=== PATIENT | female | born 2000 | race Caucasian/White ===

== ENCOUNTER 2019-06-09 18:36 | Emergency (ER) | payer SELFPAY ==
[~2019-06-09] VITALS: Ht 175 cm; Wt 68.1 kg
[2019-06-09 18:57] VITALS: BP 110/75
[2019-06-09] MEDS ORDERED: TETANUS,DIPTH,PERTUSS P/F (BOOSTRIX) 0.5 ML VIAL IM ONE (19:15)
[2019-06-09] MEDS ORDERED: LIDOCAINE 1% INJ 20 ML 20 ML VIAL INJ ONE (19:15)
[2019-06-09] MEDS ORDERED: DOXY100T2 PO (19:26)
[2019-06-09] MEDS ORDERED: MUPI1OIN6 TP (19:28)
[2019-06-09] MEDS ORDERED: DOXYCYCLINE 100 MG (VIBRAMYCIN) TABLET PO STA (19:28)
--- NOTE | 2019-06-09 19:28 | ED Upper Extremity ---
General Chief Complaint: Upper Extremity Stated Complaint: LUMP UNDER RT ARM Nursing Triage Note: ABSCESS RIGHT ARM PIT X2 DAYS. Nursing Sepsis Screen: No Definite Risk History of Present Illness Date Seen by Provider: Jun 09, 2019 Time Seen by Provider: 18:50 Initial Comments 18-year-old female presents with abscess right axilla. Patient denies any drainage from the site. She denies any injuries or other skin problems. No history of MRSA. She is unsure when her last tetanus vaccine was. Onset: other (3-4 days) Pain/Injury Location: left other (axilla) Allergies and Home Medications Allergies Coded Allergies: No Known Drug Allergies (Unverified , 06/09/19) Home Medications Doxycycline Hyclate 100 Mg Tablet, 100 MG PO BID Prescribed by: PARKER POPE on 06/09/191925 Mupirocin 1 Gm Oin.pf.andrez, 1 GM TP TID Prescribed by: PARKER POPE on 06/09/191927 Patient Home Medication List Home Medication List Reviewed: Yes Review of Systems Constitutional: no symptoms reported, see HPI Skin: see HPI, other (abscess right axilla) All Other Systems Reviewed Negative Unless Noted: Yes Past Qnxtpxb-Oalduu-Gqybms Hx Past Med/Social Hx: Reviewed Nursing Past Med/Soc Hx Patient Social History Alcohol Use: Occasionally Uses Recreational Drug Use: Yes Drug of Choice: POT, METH Smoking Status: Current Everyday Smoker Recent Foreign Travel: No Contact w/Someone Who Travel: No Recent Infectious Disease Expo: No Recent Hopitalizations: No Seasonal Allergies Seasonal Allergies: No Past Medical History Surgeries: No Respiratory: No Cardiac: No Neurological: No Genitourinary: No Gastrointestinal: No Musculoskeletal: No Endocrine: No HEENT: No Cancer: No Psychosocial: No Integumentary: No Physical Exam Vital Signs Vital Signs - First Documented 06/09/19 18:41 Temp 36.7 Pulse 103 Resp 16 B/P (MAP) 110/75 (87) Pulse Ox 99 O2 Delivery Room Air Capillary Refill : Less Than 3 Seconds Height, Weight, BMI Height: '" Weight: lbs. oz. kg; 22.00 BMI Method: General Appearance: WD/WN, no apparent distress Neck: non-tender, full range of motion, supple Cardiovascular: normal peripheral pulses, regular rate, rhythm Respiratory: chest non-tender, lungs clear Shoulder: normal inspection, non-tender, no evidence of injury, normal ROM, soft tissue tenderness (Right axilla) Neurologic/Psychiatric: no motor/sensory deficits, alert, normal mood/affect, oriented x 3 Lymphatic: axilla node tender (R) Large indurated fluctuant abscess to right axilla. No active drainage. Moderate erythema and warmth. Procedures/Interventions I&D : Site: right axilla Blade Size: 11 I & D Procedure: betadine prep Progress Skin prepped with Betadine and infiltrated with 6 ML's of 1 lidocaine. Once satisfactory local anesthetic was obtained, puncture wound at the center of the abscess was made, intermediate return of purulent drainage, moderate amount. Wound was copiously irrigated with 500 ML's of sterile saline with Hibiclens, then peroxide. Bulky sterile dressing was applied. Patient tolerated procedure well. Progress/Results/Core Measures Results/Orders My Orders Orders - PARKER POPE Lidocaine 1% Inj 20 Ml (Xylocaine 1% Inj (06/09/19 19:15) Dipht,Pertuss(Acell),Tet Adult (Boostrix (06/09/19 19:15) Doxycycline Hyclate Tablet (Vibramycin T (06/09/19 19:28) Wound Culture (06/09/19 19:45) Medications Given in ED Current Medications Medications Dose Ordered Sig/Maryam Route Start Time Stop Time Status Last Admin Dose Admin Diphtheria/ Tetanus/Acell Pertussis 0.5 ml ONCE ONCE IM 06/09/19 19:15 06/09/19 19:16 DC 06/09/19 19:25 0.5 ML Lidocaine HCl 20 ml ONCE ONCE INJ 06/09/19 19:15 06/09/19 19:16 DC 06/09/19 19:23 20 ML Vital Signs/I&O 06/09/19 06/09/19 18:41 18:57 Temp 36.7 36.7 Pulse 103 103 Resp 16 16 B/P (MAP) 110/75 (87) 110/75 (87) Pulse Ox 99 99 O2 Delivery Room Air Blood Pressure Mean: 87 Departure Impression Primary Impression: Abscess of right axilla Disposition: HOME, SELF-CARE Condition: Improved Departure-Patient Inst. Decision time for Depature: 19:40 Referrals: NO,LOCAL PHYSICIAN (PCP) Primary Care Physician [facility] [place] Patient Instructions: Abscess Incision and Drainage (DC), Skin Abscess Add. Discharge Instructions: Clean wound with peroxide and apply Bactroban 3 times daily. Take antibiotics as prescribed. If wound is draining, clean laundry and bathroom with 50/50 water and bleach. Avoid sharing towel or other personal care items. Follow-up with your primary care provider in one to 2 days if symptoms are not improving or worsen. Alternate between Tylenol 650 mg and ibuprofen 600 mg every 4 hours for pain or fever. Return to the emergency department as needed for new, urgent health care problems. All discharge instructions reviewed with patient and/or family. Voiced understanding. Scripts Mupirocin (Mupirocin) 1 Gm Oin.pf.andrez 1 GM TP TID, #1 TUBE 0 Refills Prov: PARKER POPE 06/09/19 Doxycycline Hyclate (Doxycycline Hyclate) 100 Mg Tablet 100 MG PO BID, #20 TAB 0 Refills Prov: PARKER POPE 06/09/19 PARKER POPE Jun 09, 2019 19:28
== END 2019-06-09 18:59 | disposition home or self-care (01) ==
LOC: ER 18:38
DX: L02.411 Cutaneous abscess of right axilla (principal); F17.200 Nicotine dependence, unspecified, uncomplicated
CPT/HCPCS: 87070; 87077; 87186; 87205; 90471; 90715; 99282

== ENCOUNTER 2021-04-08 19:29 | Emergency (ER) | payer SELFPAY ==
[~2021-04-08 19:29] MED LIST: DOXY100T2 PO; MUPI1OIN6 TP
[2021-04-08 19:40] VITALS: BP 110/76
[2021-04-08] MEDS ORDERED: LIDOCAINE 1% INJ 20 ML 20 ML VIAL INJ ONE (20:00)
[2021-04-08] MEDS ORDERED: cefTRIAXone 1,000 MG VIAL IM ONE (20:00)
[2021-04-08] MEDS ORDERED: ACYCLOVIR 400 MG TABLET (ZOVIRAX) PO SCH (20:00)
--- NOTE | 2021-04-08 20:05 | ED GU-Female ---
General Chief Complaint: - Reproductive Stated Complaint: CHILLS/DIARRHEA/SOB/VAGINAL PAIN Nursing Triage Note: Pt arrives via POV from home with c/o dysuria, vaginal tenderness, et vaginal swelling. Pt reports sexual intercourse one week ago, states three days ago she began experiencing symptoms. Pt also reports COVID exposure, experiencing diarrhea et chills. Source: patient Exam Limitations: no limitations (ANANDA WILLS APRN) History of Present Illness Date Seen by Provider: Apr 08, 2021 Time Seen by Provider: 20:05 Initial Comments To ER with a 3 to 4-day history of chills, diarrhea, nasal congestion, low-grade fever. She has not had a cough or shortness of breath. She has had Covid vaccine x2 but not sure which brand. One of her housemates is covid +. She did have unprotected sexual intercourse about a week ago and about 3 days ago she developed vaginal pain and states that she feels like her vagina is "going to fall out". Timing/Duration: just prior to arrival Severity/Quality: cramping Location: suprapubic Radiation: none Activities at Onset: none Prior Genitourinary Problems: none (ANANDA WILLS APRN) Allergies and Home Medications Allergies Coded Allergies: No Known Drug Allergies (Unverified , 06/09/19) Patient Home Medication List Home Medication List Reviewed: Yes (ANANDA WILLS APRN) Acyclovir (Acyclovir) 400 Mg Tablet, 400 MG PO TID Prescribed by: ANANDA WILLS on 04/08/212014 Doxycycline Hyclate (Doxycycline Hyclate) 100 Mg Tablet, 100 MG PO BID Prescribed by: PARKER POPE on 06/09/191925 Metronidazole (Metronidazole) 500 Mg Tablet, 500 MG PO BID Prescribed by: ANANDA WILLS on 04/08/212027 Mupirocin (Mupirocin) 1 Gm Oin.pf.andrez, 1 GM TP TID Prescribed by: PARKER POPE on 06/09/191927 Review of Systems Review of Systems Constitutional: see HPI, chills EENTM: see HPI, nose congestion Respiratory: no symptoms reported Cardiovascular: no symptoms reported Genitourinary: see HPI Musculoskeletal: no symptoms reported Skin: no symptoms reported Psychiatric/Neurological: No Symptoms Reported Endocrine: No Symptoms Reported Hematologic/Lymphatic: No Symptoms Reported (ANANDA WILLS APRN) Past Lxvcfuk-Whupks-Mdhret Hx Patient Social History Tobacco Use?: Yes Tobacco type used: Cigarettes Smoking Status: Current Everyday Smoker Substance use?: Yes Substance type: Marijuana Alcohol Use?: No Pt feels they are or have been: No (ANANDA WILLS APRN) Immunizations Up To Date Influenza Vaccine Up-to-Date: No; Not Current (ANANDA WILLS APRN) Seasonal Allergies Seasonal Allergies: No (ANANDA WILLS APRN) Past Medical History Surgeries: No Respiratory: No Cardiac: No Neurological: No Genitourinary: No Gastrointestinal: No Musculoskeletal: No Endocrine: No HEENT: No Cancer: No Psychosocial: No Integumentary: No (ANANDA WILLS APRN) Physical Exam Vital Signs Vital Signs - First Documented 04/08/21 19:40 Temp 39.4 Pulse 99 Resp 18 B/P (MAP) 110/76 (87) Pulse Ox 100 O2 Delivery Room Air (NICK,ANN K DO) Vital Signs Capillary Refill : Less Than 3 Seconds (ANANDA WILLS APRN) Height, Weight, BMI Height: '" Weight: lbs. oz. kg; 22.00 BMI Method: General Appearance: WD/WN, no apparent distress HEENT: PERRL/EOMI, normal ENT inspection Neck: non-tender, full range of motion Respiratory: no respiratory distress, no accessory muscle use Gastrointestinal: normal bowel sounds, non tender, soft Genital/Rectal: other (Was not able to do a cervical exam with speculum due to her pain. Pelvic exam was done with Julisa MOODY at the bedside. There is erythema and edema of the labia with several shallow exquisitely tender ulcers on the mucous membrane. 1 of these was cultured for herpes simplex and vaginal culture and Chlamydia/gonorrhea swabs were obtained from the vaginal introitus.) Extremities: normal range of motion, non-tender Neurologic/Psychiatric: alert, normal mood/affect, oriented x 3 Skin: normal color, warm/dry (ANANDA WILLS APRN) Progress/Results/Core Measures Suspected Sepsis SIRS Temperature: Pulse: 99 Respiratory Rate: 18 Blood Pressure 110 /76 Mean: 87 (ANANDA WILLS APRN) Results/Orders Lab Results Laboratory Tests Test 04/08/21 19:50 04/08/21 19:57 04/08/21 20:14 Range/Units Influenza Type A (RT-PCR) Not Detected Not Detecte Influenza Type B (RT-PCR) Not Detected Not Detecte SARS-CoV-2 RNA (RT-PCR) Not Detected Not Detecte Urine Color YELLOW Urine Clarity SL CLOUDY Urine pH 6.5 5-9 Urine Specific [place] 1.025 H 1.016-1.022 Urine Protein 1+ H NEGATIVE Urine Glucose (UA) NEGATIVE NEGATIVE Urine Ketones TRACE H NEGATIVE Urine Nitrite NEGATIVE NEGATIVE Urine Bilirubin 1+ H NEGATIVE Urine Urobilinogen 1.0 < = 1.0 MG/DL Urine Leukocyte Esterase TRACE H NEGATIVE Urine RBC (Auto) NEGATIVE NEGATIVE Urine RBC NONE /HPF Urine WBC 5-10 H /HPF Urine Squamous Epithelial Cells 0-2 /HPF Urine Crystals NONE /LPF Urine Bacteria FEW H /HPF Urine Casts NONE /LPF Urine Mucus LARGE H /LPF Urine Culture Indicated YES (ANN ROMERO DO) My Orders Orders - ANN ROMERO DO Ua Culture If Indicated (04/08/21 19:54) Influenza A And B By Pcr (04/08/21 19:54) Covid 19 Inhouse Test (04/08/21 19:54) Urine Bedside (04/08/21 19:54) Urine Culture (04/08/21 20:14) (ANN ROMERO DO) Medications Given in ED Current Medications Medications Dose Ordered Sig/Maryam Route Start Time Stop Time Status Last Admin Dose Admin Ceftriaxone Sodium 1,000 mg ONCE ONCE IM 04/08/21 20:00 04/08/21 20:05 DC 04/08/21 20:15 1,000 MG Lidocaine HCl 2.1 ml ONCE ONCE INJ 04/08/21 20:00 04/08/21 20:05 DC 04/08/21 20:15 2.1 ML Lidocaine HCl 15 ml ONCE ONCE PO 04/08/21 20:00 04/08/21 20:05 DC 04/08/21 20:33 15 ML (ANN ROMERO DO) Vital Signs/I&O 04/08/21 19:40 Temp 39.4 Pulse 99 Resp 18 B/P (MAP) 110/76 (87) Pulse Ox 100 O2 Delivery Room Air (ANN ROMERO DO) Vital Signs/I&O Capillary Refill : Less Than 3 Seconds (ANANDA WILLS APRN) Blood Pressure Mean: 87 Departure Impression Primary Impression: Genital labial ulcer Additional Impression: Viral syndrome Disposition: 01 HOME, SELF-CARE Condition: Stable Departure-Patient Inst. Decision time for Depature: 20:13 (ANANDA WILLS APRN) [place] [facility] [place] [place] (PCP/Family) Primary Care Physician Patient Instructions: COVID-19 Vaccines Add. Discharge Instructions: 1. It is very possible that these labial ulcers are related to a herpes simplex infection which is a lifelong infection that will wax and wane throughout your life. This will be best treated by a antivirals if it is positive. In the vt antime take the medications as directed. Culture results should be back within a week. It is important to follow-up with your primary care provider next week for further evaluation and treatment. Abstain from any sexual intercourse until lesions resolve and culture results are known. All discharge instructions reviewed with patient and/or family. Voiced understanding. Scripts Metronidazole (Metronidazole) 500 Mg Tablet 500 MG PO BID, #14 TAB 0 Refills Prov: ANANDA WILLS APRN 04/08/21 Acyclovir (Acyclovir) 400 Mg Tablet 400 MG PO TID, #21 TAB Prov: ANANDA WILLS APRN 04/08/21 ATTENDING PHYSICIAN NOTE: I WAS PHYSICALLY PRESENT ER PHYSICIAN WHEN THIS PATIENT WAS IN ER, BUT I WAS NOT INVOLVED IN ANY DECISION MAKING OR ANY CARE OF THIS PATIENT. (ANN ROMERO DO) ANANDA WILLS APRN Apr 08, 2021 20:05 ANN ROMERO DO Apr 09, 2021 05:12
[2021-04-08] MEDS: LIDOCAINE 2% VISCOUS 15 ML UDC PO ONE ×2 (20:14→20:33)
[2021-04-08] MEDS ORDERED: ACYC400T21 PO (20:15)
[2021-04-08 20:20] LABS: CLARITY,URINE SL CLOUDY; COLOR,URINE YELLOW; GLUCOSE, URINE (UA) NEGATIVE (NEGATIVE); KETONES,URINE TRACE (NEGATIVE); LEUKOCYTE ESTERASE ,URINE TRACE (NEGATIVE); NITRITE,URINE NEGATIVE (NEGATIVE); PH,URINE 6.5 (5-9); PROTEIN,URINE 1+ (NEGATIVE)
[2021-04-08 20:28] LABS: BACTERIA,URINE FEW /HPF; BILIRUBIN,URINE 1+ (NEGATIVE); SQUAMOUS EPITHELIAL CELL,UR 0-2 /HPF
[2021-04-08] MEDS ORDERED: METR-145 PO (20:28)
[2021-04-08] MEDS ORDERED: AZITHROMYCIN 250 MG TAB (ZITHROMAX) PO SCH (20:30)
[2021-04-09] MEDS ORDERED: AZITHROMYCIN 250 MG TAB (ZITHROMAX) PO SCH (09:00)
== END 2021-04-08 20:45 | disposition home or self-care (01) ==
LOC: EDUNIT# 19:29 → ER 19:30
DX: N76.6 Ulceration of vulva (principal); B34.9 Viral infection, unspecified; F17.210 Nicotine dependence, cigarettes, uncomplicated; Z20.822 Contact with and (suspected) exposure to COVID-19
CPT/HCPCS: 36415; 81000; 84703; 87070; 87088; 87205; 87210; 87254; 87491; 87591; 87636; 99284

== ENCOUNTER 2021-09-23 21:37 | Emergency (ER) | payer SELFPAY ==
[~2021-09-23] VITALS: Ht 172 cm; Wt 68.0 kg
[~2021-09-23 21:37] MED LIST changes: +ACYC400T21 PO; +METR-145 PO
[2021-09-23 21:50] VITALS: BP 107/73
--- NOTE | 2021-09-23 22:23 | ED GU-Female ---
General Chief Complaint: General Problems/Pain Stated Complaint: VAGINAL PAIN Nursing Triage Note: PT PRESENTS WITH C/O VAGINAL LESION AND BURNING OF THE VAGINA WHEN URINATING. REPORTS HX OF HERPES, DENIES BEING ON ANTIVIRAL MEDICATION. REPORTS SHE BELIEVES THIS IS ANOTHER HERPES OUTBREAK. Source: patient Exam Limitations: no limitations History of Present Illness Date Seen by Provider: September 23, 2021 Time Seen by Provider: 22:15 Initial Comments Patient to the ER by private conveyance chief complaint for the past day she had some increased burning pain in her vagina with a little bit of discharge malodorous. She has a history of herpes not on any antiviral medication at this time. She also shaved 2 days ago. She has not looked at it so she is not sure what it looks like. No fevers chills nausea vomiting dysuria. She is 2 to 3 weeks out from her last period. She is not on control. She is on the women chcf at this time and does not want a test nor does she want further STD screening. She did have STD testing just within the past 2 to 3 mon ths Allergies and Home Medications Allergies Coded Allergies: No Known Drug Allergies (Unverified , 06/09/19) Patient Home Medication List Home Medication List Reviewed: Yes Acyclovir (Acyclovir) 400 Mg Tablet, 400 MG PO TID Prescribed by: ANANDA WILLS on 04/08/212014 Acyclovir (Acyclovir) 800 Mg Tablet, 800 MG PO 5XD Prescribed by: SALAZAR ARCINIEGA on 09/23/212234 Doxycycline Hyclate (Doxycycline Hyclate) 100 Mg Tablet, 100 MG PO BID Prescribed by: PARKER POPE on 06/09/191925 Metronidazole (Metronidazole) 500 Mg Tablet, 500 MG PO BID Prescribed by: ANANDA WILLS on 04/08/212027 Mupirocin (Mupirocin) 1 Gm Oin.pf.andrez, 1 GM TP TID Prescribed by: PARKER POPE on 06/09/191927 Review of Systems Review of Systems Constitutional: No chills, No diaphoresis EENTM: No ear discharge, No ear pain Respiratory: No cough, No short of breath Cardiovascular: No edema, No palpitations All Other Systemes Reviewed Negative Unless Noted: Yes Past Fyjzdqx-Rdnyao-Siigjr Hx Patient Social History Tobacco Use?: Yes Tobacco type used: Cigarettes Smoking Status: Current Everyday Smoker Substance use?: No Alcohol Use?: No Immunizations Up To Date Influenza Vaccine Up-to-Date: No; Not Current First/Initial COVID19 Vaccinat: UNKNOWN DATE Second COVID19 Vaccination Henri: UNKNOWN DATE COVID19 Vaccine Dado Operator: UNKNOWN Seasonal Allergies Seasonal Allergies: No Past Medical History Surgeries: No Respiratory: No Cardiac: No Neurological: No Genitourinary: No Gastrointestinal: No Musculoskeletal: No Endocrine: No HEENT: No Cancer: No Psychosocial: No Integumentary: No Physical Exam Vital Signs Vital Signs - First Documented 09/23/21 21:50 Pulse 79 Resp 18 B/P (MAP) 107/73 (84) Pulse Ox 98 O2 Delivery Room Air Capillary Refill : Height, Weight, BMI Height: '" Weight: lbs. oz. kg; 22.00 BMI Method: General Appearance: WD/WN, no apparent distress HEENT: PERRL/EOMI, pharynx normal Neck: full range of motion, normal inspection Cardiovascular: normal peripheral pulses, regular rate, rhythm Respiratory: no respiratory distress, no accessory muscle use Pelvic: No discharge; lesions (Small little clusters of ulcerations and a small vesicle at the posterior fourchette that are tender to palpation and nondraining.) Progress/Results/Core Measures Suspected Sepsis SIRS Temperature: Pulse: 79 Respiratory Rate: 18 Blood Pressure 107 /73 Mean: 84 Results/Orders My Orders Orders - SALAZAR ARCINIEGA Wet Prep (09/23/21 22:23) Vital Signs/I&O 09/23/21 21:50 Pulse 79 Resp 18 B/P (MAP) 107/73 (84) Pulse Ox 98 O2 Delivery Room Air Capillary Refill : Blood Pressure Mean: 84 Progress Note : Time: 22:33 Progress Note She has a history of herpes so we will put her on acyclovir. We did do a wet pr ep and we will treat her appropriately for that. The ulcers do not look like Haemophilus ducreyi and she says they are similar to the last time she had herpes. She does not appear to have folliculitis Departure Impression Primary Impression: Herpes genitalis in women Additional Impression: Bacterial vaginosis Disposition: 01 HOME, SELF-CARE Condition: Stable Departure-Patient Inst. Decision time for Depature: 22:45 Referrals: [facility] (PCP/Family) Primary Care Physician Patient Instructions: Genital Herpes (DC), Bacterial Vaginosis ED Add. Discharge Instructions: Acyclovir 800 mg 5 times a day. Take to completion. If you have another outbreak then you can get another round through the pharmacy. If you have further outbreaks and follow-up with your primary care provider for refills. Metronidazole 500 mg twice a day with food for the next week to take care of the bacterial overgrowth. All discharge instructions reviewed with patient and/or family. Voiced understanding. Scripts Metronidazole (Metronidazole) 500 Mg Tablet 500 MG PO BID for 7 Days, #14 TAB 0 Refills Prov: SALAZAR ARCINIEGA 09/23/21 Acyclovir (Acyclovir) 800 Mg Tablet 800 MG PO 5XD for 7 Days, #35 TAB 1 Refill Prov: SALAZAR ARCINIEGA 09/23/21 SALAZAR ARCINIEGA September 23, 2021 22:23
[2021-09-23] MEDS ORDERED: ACYC-112 PO (22:35)
[2021-09-23] MEDS ORDERED: METR-145 PO (22:46)
[2021-09-23] MEDS ORDERED: ACYCLOVIR 400 MG TABLET (ZOVIRAX) PO STA (22:48)
== END 2021-09-23 23:12 | disposition home or self-care (01) ==
LOC: EDUNIT# 21:37 → ER 21:39
DX: A60.04 Herpesviral vulvovaginitis (principal); F17.210 Nicotine dependence, cigarettes, uncomplicated
CPT/HCPCS: 87210; 99282

== ENCOUNTER 2022-06-20 12:32 | Emergency (ER) | payer SELFPAY ==
[~2022-06-20] VITALS: Ht 175 cm; Wt 58.0 kg
[~2022-06-20 12:32] MED LIST changes: +ACYC-112 PO
--- NOTE | 2022-06-20 13:07 | ED Integumentary General ---
General Chief Complaint: Skin/Wound Problems Stated Complaint: INFECTION IN GROIN AREA Nursing Triage Note: ABSCESS TO GROIN X2 DAYS. Source: patient Exam Limitations: no limitations History of Present Illness Date Seen by Provider: Jun 20, 2022 Time Seen by Provider: 12:54 Initial Comments 21-year-old female presents with complaints of "bumps" to groin area. States there are 2, 1 is located in the left inguinal area, the second is located in the left labial area. States she noticed the one in the left inguinal area today, noticed the other one a couple days ago. She has a history of genital herpes, she is unsure if this is an outbreak. She is not currently on any antivirals. Complains of nausea due to the pain with wiping. Denies fevers, abdominal pain, diarrhea, dysuria. Past medical history only includes genital herpes, does not take any medications. Allergies and Home Medications Allergies Coded Allergies: No Known Drug Allergies (Unverified , 06/09/19) Patient Home Medication List Home Medication List Reviewed: Yes Sulfamethoxazole/Trimethoprim (Bactrim Ds Tablet) 1 Each Tablet, 1 EACH PO BID Prescribed by: Rosie Olea on 06/20/22 1308 Discontinued Medications Acyclovir (Acyclovir) 400 Mg Tablet, 400 MG PO TID Discontinued Reason: No Longer Taking Prescribed by: ANANDA WILLS on 04/08/212014 Last Action: Discontinued Acyclovir (Acyclovir) 800 Mg Tablet, 800 MG PO 5XD Discontinued Reason: No Longer Taking Prescribed by: SALAZAR ARCINIEGA on 09/23/212234 Last Action: Discontinued Doxycycline Hyclate (Doxycycline Hyclate) 100 Mg Tablet, 100 MG PO BID Discontinued Reason: No Longer Taking Prescribed by: PARKER POPE on 06/09/191925 Last Action: Discontinued Metronidazole (Metronidazole) 500 Mg Tablet, 500 MG PO BID Discontinued Reason: No Longer Taking Prescribed by: ANANDA WILLS on 04/08/212027 Last Action: Discontinued Metronidazole (Metronidazole) 500 Mg Tablet, 500 MG PO BID Discontinued Reason: No Longer Taking Prescribed by: SALAZAR ARCINIEGA on 09/23/21 224 Last Action: Discontinued Mupirocin (Mupirocin) 1 Gm Oin.pf.andrez, 1 GM TP TID Discontinued Reason: No Longer Taking Prescribed by: PARKER POPE on 06/09/191927 Last Action: Discontinued Review of Systems Review of Systems Constitutional: see HPI Past Iswfsld-Wklgor-Whfrtv Hx Patient Social History Tobacco type used: Cigarettes Smoking Status: Current Everyday Smoker Substance use?: Yes Substance type: Marijuana Alcohol Use?: No Immunizations Up To Date First/Initial COVID19 Vaccinat: UNKNOWN DATE Second COVID19 Vaccination Henri: UNKNOWN COVID19 Vaccine Gas Line Servicer: UNKNOWN Seasonal Allergies Seasonal Allergies: No Past Medical History Surgeries: No Respiratory: No Cardiac: No Neurological: No Last Menstrual Period: Jun 06, 2022 Genitourinary: No Gastrointestinal: No Musculoskeletal: No Endocrine: No HEENT: No Cancer: No Psychosocial: No Integumentary: No Physical Exam Vital Signs Vital Signs - First Documented 06/20/22 12:40 Temp 35.7 Pulse 115 Resp 16 B/P (MAP) 115/74 (88) Pulse Ox 100 O2 Delivery Room Air Capillary Refill : Less Than 3 Seconds General Appearance: WD/WN, no apparent distress Neck: supple, normal inspection Cardiovascular: regular rate, rhythm, no edema, no gallop, no JVD, no murmur Respiratory: lungs clear, normal breath sounds, no respiratory distress, no accessory muscle use Extremities: normal range of motion, normal inspection Neurologic/Psychiatric: alert, normal mood/affect Skin: normal color, warm/dry Skin Problem Location: other (Perineal area) Skin Problem Character: abscess (Induration to left perineal area, mild redness, no drainage, no area of fluctuation) Lymphatic: inguinal node tender (L) (Enlarged left inguinal node) Progress/Results/Core Measures Results/Orders Vital Signs/I&O 06/20/22 12:40 Temp 35.7 Pulse 115 Resp 16 B/P (MAP) 115/74 (88) Pulse Ox 100 O2 Delivery Room Air Blood Pressure Mean: 88 Progress Progress Note : Time: 13:05 Progress Note Patient seen and evaluated, resting on bed, no acute distress. Left perineal abscess noted, no area of fluctuation, unable to drain at this time. Left inguinal lymphadenopathy. Will discharge with antibiotic. Patient instructed to do warm compresses and to return to ED in 2 days for reevaluation and possible I&D at that time since patient does not have a primary care provider. Discharge directions and return precautions provided. Departure Impression Primary Impression: Abscess Disposition: 01 HOME, SELF-CARE Condition: Stable Departure-Patient Inst. Decision time for Depature: 13:06 Referrals: [facility] (PCP/Family) Primary Care Physician Patient Instructions: Skin Abscess Add. Discharge Instructions: Return in 2 days to have wound reevaluated. Use warm compresses on the area for 20 minutes at a time several times a day. Take the antibiotic as prescribed, complete full course of antibiotic, even if symptoms improve. Return for fever, or any other new, concerning, or worsening symptoms. All discharge instructions reviewed with patient and/or family. Voiced understanding. Scripts Sulfamethoxazole/Trimethoprim (Bactrim Ds Tablet) 1 Each Tablet 1 EACH PO BID for 7 Days, #14 TAB 0 Refills Prov: ROSIE OLEA APRN 06/20/22 Work/School Note: Work Release Form Date Seen in the Emergency Department: Jun 20, 2022 Return to Work: Jun 21, 2022 Restrictions: No Restrictions ROSIE OLEA APRN Jun 20, 2022 13:07
[2022-06-20] MEDS ORDERED: SULF1TAB38 PO (13:08)
[2022-06-20 13:15] VITALS: BP 115/74
[2022-06-21] MEDS ORDERED: ACHD5005 PO (16:47)
== END 2022-06-20 13:16 | disposition home or self-care (01) ==
LOC: EDUNIT# 12:32 → ER 12:35
DX: L02.215 Cutaneous abscess of perineum (principal); R59.0 Localized enlarged lymph nodes; F17.210 Nicotine dependence, cigarettes, uncomplicated
CPT/HCPCS: 99281

== ENCOUNTER 2022-06-21 16:04 | Emergency (ER) | payer SELFPAY ==
[~2022-06-21] VITALS: Ht 175 cm; Wt 59.0 kg
[~2022-06-21 16:04] MED LIST changes: +SULF1TAB38 PO
[2022-06-21 16:15] VITALS: BP 116/80
--- NOTE | 2022-06-21 16:18 | ED Integumentary General ---
General Chief Complaint: Skin/Wound Problems Stated Complaint: INFECTION IN GROIN AREA Source: patient Exam Limitations: no limitations History of Present Illness Date Seen by Provider: Jun 21, 2022 Time Seen by Provider: 16:16 Initial Comments Patient is a 21-year-old female who presents ED with pain to her left sided groin. She states she was seen here yesterday with a potential abscess placed on Bactrim. Was recommended come to the ED if symptoms worsen. She noticed increased swelling and pain to this area. She has taken a day worth of Bactrim. She states she has felt feverish. She denies of any diarrhea, vomiting, abdominal pain. She reports some redness around her labia. Allergies and Home Medications Allergies Coded Allergies: No Known Drug Allergies (Unverified , 06/09/19) Patient Home Medication List Home Medication List Reviewed: Yes Hydrocodone/Acetaminophen (Hydrocodone-Acetamin 5-325 mg) 5 Mg-325 Mg Tablet, 1 TAB PO Q4H PRN for PAIN-MODERATE (5-7) Prescribed by: FLAVIO WILSON on 06/21/22 1647 Sulfamethoxazole/Trimethoprim (Bactrim Ds Tablet) 1 Each Tablet, 1 EACH PO BID Prescribed by: Rosie Charles on 06/20/22 1308 Discontinued Medications Acyclovir (Acyclovir) 400 Mg Tablet, 400 MG PO TID Discontinued Reason: No Longer Taking Prescribed by: ANANDA WILLS on 04/08/212014 Acyclovir (Acyclovir) 800 Mg Tablet, 800 MG PO 5XD Discontinued Reason: No Longer Taking Prescribed by: SALAZAR ARCINIEGA on 09/23/212234 Doxycycline Hyclate (Doxycycline Hyclate) 100 Mg Tablet, 100 MG PO BID Discontinued Reason: No Longer Taking Prescribed by: PARKER POPE on 06/09/191925 Metronidazole (Metronidazole) 500 Mg Tablet, 500 MG PO BID Discontinued Reason: No Longer Taking Prescribed by: ANANDA WILLS on 04/08/212027 Metronidazole (Metronidazole) 500 Mg Tablet, 500 MG PO BID Discontinued Reason: No Longer Taking Prescribed by: SALAZAR ARCINIEGA on 09/23/212245 Mupirocin (Mupirocin) 1 Gm Oin.pf.andrez, 1 GM TP TID Discontinued Reason: No Longer Taking Prescribed by: PARKER POPE on 06/09/191927 Review of Systems Review of Systems Constitutional: No chills, No diaphoresis, No malaise, No weakness EENTM: No hearing loss, No ear pain, No blurred vision, No vision loss, No mouth pain, No mouth swelling, No throat pain, No throat swelling Respiratory: No cough Cardiovascular: No chest pain Gastrointestinal: No abdominal pain, No diarrhea, No nausea, No vomiting Genitourinary: No decreased output, No discharge Musculoskeletal: No back pain, No joint pain; other (Abscess) Skin: change in color All Other Systems Reviewed Negative Unless Noted: Yes Past Dtgdhad-Trqnfy-Tmsrxp Hx Immunizations Up To Date First/Initial COVID19 Vaccinat: UNKNOWN DATE Second COVID19 Vaccination Henri: UNKNOWN Seasonal Allergies Seasonal Allergies: No Past Medical History Surgeries: No Respiratory: No Cardiac: No Neurological: No Genitourinary: No Gastrointestinal: No Musculoskeletal: No Endocrine: No HEENT: No Cancer: No Psychosocial: No Integumentary: No Physical Exam Vital Signs Vital Signs - First Documented 06/21/22 16:15 Temp 36.7 Pulse 108 Resp 20 B/P (MAP) 116/80 (92) Pulse Ox 99 O2 Delivery Room Air Capillary Refill : General Appearance: WD/WN, no apparent distress HEENT: PERRL/EOMI, normal ENT inspection, TMs normal, pharynx normal Neck: non-tender, full range of motion, supple, normal inspection Cardiovascular: regular rate, rhythm, no edema, no gallop, no JVD Respiratory: chest non-tender, lungs clear, normal breath sounds, no respiratory distress, no accessory muscle use Gastrointestinal: normal bowel sounds, non tender, soft, no organomegaly Back: normal inspection, no CVA tenderness Extremities: normal range of motion, non-tender, normal inspection, no pedal edema 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 Tenderness to palpate.) Lymphatic: no adenopathy Procedures/Interventions I&D : Blade Size: 11 I & D Procedure: betadine prep Packing/Drain: Idoform 1/ Progress Large left Bartholin cyst with large amount of purulent drainage. Lidocaine 1% 10 mils was used with 20-gauge needle. Prepped with Betadine. Iodoform packing was placed. Extensive irrigation with 200 mls. Patient tolerated procedure well Progress/Results/Core Measures Results/Orders My Orders Orders - CATHERINE VELIZ Lidocaine 1% Inj 10 Ml (Xylocaine 1% Inj (06/21/22 16:30) Medications Given in ED Current Medications Medications Dose Ordered Sig/Maryam Route Start Time Stop Time Status Last Admin Dose Admin Lidocaine HCl 10 ml ONCE ONCE INJ 06/21/22 16:30 06/21/22 16:31 DC 06/21/22 16:45 10 ML Vital Signs/I&O 06/21/22 16:15 Temp 36.7 Pulse 108 Resp 20 B/P (MAP) 116/80 (92) Pulse Ox 99 O2 Delivery Room Air Departure Communication (PCP) Patient has a large left Bartholin cyst. Incision and drainage with large amount of purulent drainage. Do not have Delgado catheter or [place] to suture. Was able to place iodoform gauze. Discussed with patient that this will continue to drain. She was placed on Bactrim which I recommend continuing. Pain improved. Will discharge with pain medication. Follow-up your primary care physician 2 days for reevaluation. If not able to follow-up recommend return back to ED for recheck and packing removal. Return precaution were discussed with patient. Avoid any sexual intercourse at this time. No urinary symptoms. Impression Primary Impression: Bartholin cyst Disposition: 01 HOME, SELF-CARE Condition: Stable Departure-Patient Inst. Decision time for Depature: 16:46 Ref[facility]: [facility] [place] (PCP/Family) Primary Care Physician Patient Instructions: Wound Care (DC), Bartholin Gland Cyst Add. Discharge Instructions: Take pain medication as prescribed. Remove packing in 2 days. Soap and water is okay pat dry. Continue with antibiotics All discharge instructions reviewed with patient and/or family. Voiced understanding. Scripts Hydrocodone/Acetaminophen (Hydrocodone-Acetamin 5-325 mg) 5 Mg-325 Mg Tablet 1 TAB PO Q4H PRN for PAIN-MODERATE (5-7), #8 TAB Prov: CATHERINE VELIZ 06/21/22 CATHERINE VELIZ Jun 21, 2022 16:18
[2022-06-21] MEDS ORDERED: LIDOCAINE 1% INJ 10 ML VIAL INJ ONE (16:30)
[2022-06-21] MEDS ORDERED: ACHD5005 PO (16:47)
== END 2022-06-21 16:50 | disposition home or self-care (01) ==
LOC: EDUNIT# 16:04 → ER 16:06
DX: N75.0 Cyst of Bartholin's gland (principal)
CPT/HCPCS: 99282

== ENCOUNTER 2022-12-26 11:15 | Emergency (ER) | payer MEDICAID ==
[~2022-12-26] VITALS: Ht 172.7 cm; Wt 67.5 kg
[~2022-12-26 11:15] MED LIST changes: +ACHD5005 PO
--- NOTE | 2022-12-26 11:28 | ED Integumentary General ---
General Chief Complaint: Skin/Wound Problems Stated Complaint: CYST REMOVAL Source: patient Exam Limitations: no limitations (CATHERINE VELIZ) History of Present Illness Date Seen by Provider: Dec 26, 2022 Time Seen by Provider: 11:28 Initial Comments Patient is a 22-year-old female who presents to the ED with a left groin abscess. Started 2 days ago. Increased size pain. She has a history of similar cyst in the past that required incision and drainage. She followed up with Dr. Stallings her [employer] today for a 20-week visit. Was recommended come the ED for incision and drainage. She reports no pain with urination or frequent urination. No current vaginal bleeding, abdominal pain, fever, vomiting, diarrhea. Not currently on antibiotics. Patient denies fever, chills, body aches, headache, dizziness (CATHERINE VELIZ) Allergies and Home Medications Allergies Coded Allergies: No Known Drug Allergies (Unverified , 06/09/19) Patient Home Medication List Home Medication List Reviewed: Yes (CATHERINE VELIZ) Cephalexin (Cephalexin) 500 Mg Tablet, 500 MG PO QID Prescribed by: FLAVIO WILSON on 12/26/22 1153 Clindamycin HCl (Clindamycin HCl) 300 Mg Capsule, 300 MG PO QID Prescribed by: FLAVIO WILSON on 12/26/22 1200 Hydrocodone/Acetaminophen (Hydrocodone-Acetamin 5-325 mg) 5 Mg-325 Mg Tablet, 1 TAB PO Q4H PRN for PAIN-MODERATE (5-7) Prescribed by: FLAVIO WILSON on 06/21/22 1647 Sulfamethoxazole/Trimethoprim (Bactrim Ds Tablet) 1 Each Tablet, 1 EACH PO BID Prescribed by: Rosie Charles on 06/20/22 1308 Review of Systems Review of Systems Constitutional: No chills EENTM: No ear pain, No double vision Respiratory: No cough, No dyspnea on exertion Cardiovascular: No chest pain Gastrointestinal: No abdominal pain, No diarrhea, No nausea, No vomiting Genitourinary: No decreased output, No discharge, No dysuria, No frequency Musculoskeletal: No back pain, No joint pain Skin: change in color, other (Abscess) (CATHERINE VELIZ) All Other Systems Reviewed Negative Unless Noted: Yes (CATHERINE VELIZ) Past Pyaqxlg-Bjgtow-Tlkfvu Hx Patient Social History Tobacco Use?: Yes Tobacco type used: Cigarettes Use of E-Cig and/or Vaping dev: Yes E-Cig or Vaping type used: Nicotine Substance use?: Yes Substance type: Marijuana Alcohol Use?: No Pt feels they are or have been: Unable to obtain (CATHERINE VELIZ) Immunizations Up To Date First/Initial COVID19 Vaccinat: UNKNOWN Second COVID19 Vaccination Henri: UNKNOWN Third COVID19 Vaccination Date: UNKNOWN (CATHERINE VELIZ) Seasonal Allergies Seasonal Allergies: No (CATHERINE VELIZ) Past Medical History Surgeries: No Respiratory: No Cardiac: No Neurological: No Genitourinary: No Gastrointestinal: No Musculoskeletal: No Endocrine: No HEENT: No Cancer: No Psychosocial: No Integumentary: No (CATHERINE VELIZ) Physical Exam Vital Signs Vital Signs - First Documented 12/26/22 11:24 Temp 36.3 Pulse 103 B/P (MAP) 121/75 (90) Pulse Ox 100 O2 Delivery Room Air (BLAKE FUENTES MD) Vital Signs Capillary Refill : (CATHERINE VELIZ) General Appearance: WD/WN, no apparent distress HEENT: PERRL/EOMI, normal ENT inspection, TMs normal, pharynx normal Neck: non-tender, full range of motion, supple Cardiovascular: regular rate, rhythm, no edema, no gallop, no JVD Respiratory: chest non-tender, lungs clear, normal breath sounds, no respiratory distress, no accessory muscle use Gastrointestinal: normal bowel sounds, non tender, soft, no organomegaly Back: normal inspection, no CVA tenderness, no vertebral tenderness Extremities: normal range of motion, normal inspection, no pedal edema 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 Fluctuant.) Lymphatic: no adenopathy (CATHERINE VELIZ) Procedures/Interventions I&D : Blade Size: 11 I & D Procedure: betadine prep Packing/Drain: Idoform 04/30 Progress 2 x 2 centimeter fluctuant mass to left labia. Large amount of purulent drainage. Extensive irrigation. Quarter iodoform packing was placed. (CATHERINE VELIZ) Progress/Results/Core Measures Results/Orders Vital Signs/I&O 12/26/22 12/26/22 11:24 12:00 Temp 36.3 Pulse 103 B/P (MAP) 121/75 (90) 121/75 Pulse Ox 100 100 O2 Delivery Room Air Room Air (BLAKE FUENTES MD) Departure Communication (PCP) Patient with a history of Bartholin cyst. Visit in May with incision and drainage. Improved with antibiotics and after draining. She is currently 20 weeks . She had a follow-up with her [employer] Dr. Fuentes today concern that she has a another Bartholin cyst that needs incision and drainage. Patient reports vaginal pain and discomfort near the abscess. No vaginal discharge, pain with urination, frequent urination, vaginal bleeding or abdominal pain. On exam she does have a left Bartholin cyst. Localized lidocaine 1%. Made an incision with large amount of purulent drainage. I do not have any Word catheters, rubber ring catheters to place to allow continuous drainage. I do have iodoform packing / which was placed. Suggest removing the packing in 2 days. If increased redness, swelling, pain or size to return back to ED. Recommended antibiotics for Bartholin cyst is a cephalosporin and clindamycin with broad-spectrum. Patient will be discharged with Keflex and clindamycin. Safe for . Tylenol for pain. (CATHERINE VELIZ) Impression Primary Impression: Bartholin cyst Disposition: 01 HOME, SELF-CARE Condition: Stable Departure-Patient Inst. Decision time for Depature: 11:52 (CATHERINE VELIZ) Referrals: ROSANNE STALLINGS MD (PCP/Family) Primary Care Physician Patient Instructions: Bartholin gland cyst Add. Discharge Instructions: Remove packing in 2 days. If increased redness or swelling to return back to ED. Take antibiotics as prescribed. Recommend no sexual intercourse until area has healed All discharge instructions reviewed with patient and/or family. Voiced understan deidre. Scripts Clindamycin HCl (Clindamycin HCl) 300 Mg Capsule 300 MG PO QID for 7 Days, #28 CAP Prov: CTAHERINE VELIZ 12/26/22 Cephalexin (Cephalexin) 500 Mg Tablet 500 MG PO QID for 7 Days, #28 TAB Prov: CATHERINE VELIZ 12/26/22 ATTENDING PHYSICIAN NOTE: I was physically present as attending physician in the emergency department during the care of this patient, but I was not directly involved in the decision making or delivery of care for this patient. (BLAKE FUENTES MD) CATHERINE VELIZ Dec 26, 2022 11:28 BLAKE FUENTES MD Dec 29, 2022 07:26
[2022-12-26] MEDS ORDERED: CEPH500T PO (11:53)
[2022-12-26 12:00] VITALS: BP 121/75
[2022-12-26] MEDS ORDERED: CLIN-144 PO (12:00)
== END 2022-12-26 12:04 | disposition home or self-care (01) ==
LOC: EDUNIT# 11:15 → ER 11:19
DX: O99.712 Diseases of the skin and subcutaneous tissue complicating pregnancy, second trimester (principal); N75.0 Cyst of Bartholin's gland; O99.332 Smoking (tobacco) complicating pregnancy, second trimester; F17.210 Nicotine dependence, cigarettes, uncomplicated; F17.290 Nicotine dependence, other tobacco product, uncomplicated; Z3A.20 20 weeks gestation of pregnancy
CPT/HCPCS: 10160

== ENCOUNTER 2023-02-09 14:19 | Observation (INO) | payer MEDICAID ==
[~2023-02-09] VITALS: Ht 172.7 cm; Wt 72.0 kg
[~2023-02-09 14:19] MED LIST changes: +CEPH500T PO; +CLIN-144 PO
[2023-02-09] MEDS: LACTATED RINGERS 1,000 ML 1,000 ML IV SCH ×2 (15:14→16:54)
[2023-02-09 15:16] VITALS: BP 131/63
[2023-02-09 15:53] LABS: CLARITY,URINE CLOUDY; COLOR,URINE ORANGE; PH,URINE 6.5 (5-9); PROTEIN,URINE 3+ (NEGATIVE)
[2023-02-09 15:54] LABS: BACTERIA,URINE MODERATE /HPF; BILIRUBIN,URINE NEGATIVE (NEGATIVE); GLUCOSE, URINE (UA) NEGATIVE (NEGATIVE); KETONES,URINE 4+ (NEGATIVE); LEUKOCYTE ESTERASE ,URINE 2+ (NEGATIVE); NITRITE,URINE POSITIVE (NEGATIVE); WBC,URINE TNTC /HPF
[2023-02-09 15:55] LABS: ALBUMIN 3.8 GM/DL (3.2-4.5); POTASSIUM 3.6 MMOL/L (3.6-5.0)
[2023-02-09 15:56] LABS: BASOPHILS % (AUTO) 0 % (0-10); EOSINOPHILS % (AUTO) 0 % (0-10); HEMATOCRIT 35 % (35-52); HEMOGLOBIN 11.5 g/dL (11.5-16.0); LYMPHOCYTES # (AUTO) 0.9 X 10^3 (1.0-4.0); LYMPHOCYTES % (AUTO) 6 % (12-44); MEAN CORPUSCULAR HEMOGLOBIN 33 pg (25-34); MEAN CORPUSCULAR HGB CONC 33 g/dL (32-36); MEAN CORPUSCULAR VOLUME 99 fL (80-99); MONOCYTES # (AUTO) 0.6 X 10^3 (0.0-1.0); MONOCYTES % (AUTO) 4 % (0-12); NEUTROPHILS % (AUTO) 89 % (42-75); PLATELET COUNT 345 10^3/uL (130-400); WHITE BLOOD COUNT 14.7 10^3/uL (4.3-11.0)
[2023-02-09 15:57] LABS: CALCIUM 8.9 MG/DL (8.5-10.1)
[2023-02-09 15:58] LABS: TOTAL PROTEIN 7.1 GM/DL (6.4-8.2)
[2023-02-09 16:00] LABS: BILIRUBIN,TOTAL 0.8 MG/DL (0.1-1.0)
[2023-02-09 16:01] LABS: CREATININE SERUM 0.72 MG/DL (0.60-1.30)
[2023-02-09 16:18] LABS: BAND NEUTROPHILS 0 %; BASOPHILS % (MANUAL) 0 %; EOSINOPHILS % (MANUAL) 0 %; LYMPHOCYTES % (MANUAL) 6 %; MONOCYTES % (MANUAL) 6 %; NEUTROPHILS % (MANUAL) 88 %; RBC MORPH NORMAL
[2023-02-09] MEDS ORDERED: cefTRIAXone IV/IM 1,000 MG in NS (IVPB) 50 ML 50 ML IV ONE (16:30)
[2023-02-09 16:35] VITALS: BP 131/63
[2023-02-09] MEDS ORDERED: NS (IVPB) 50 ML 50 ML ONE (16:48)
[2023-02-09] MEDS ORDERED: cefTRIAXone 1,000 MG VIAL IV/IM ONE (16:48)
[2023-02-09] MEDS ORDERED: ONDANSETRON INJECTION 4 MG/2 ML (SDV) ONE (17:14)
[2023-02-09] MEDS ORDERED: ACETAMINOPHEN 500 MG TABLET ONE (17:14)
[2023-02-09] MEDS ORDERED: ACETAMINOPHEN 500 MG TABLET PO ONE (17:15)
[2023-02-09] MEDS: ONDANSETRON INJECTION 4 MG/2 ML (SDV) IVP PRN (17:18)
[2023-02-09 20:58] VITALS: BP 126/58
[2023-02-10 00:53] VITALS: BP 122/86
[2023-02-10] MEDS: LACTATED RINGERS 1,000 ML 1,000 ML IV SCH ×2 (00:58→06:25)
[2023-02-10] MEDS: ONDANSETRON INJECTION 4 MG/2 ML (SDV) IVP PRN (00:58)
[2023-02-10 03:15] VITALS: BP 121/57
[2023-02-10] MEDS ORDERED: NITROFURANTOIN Monohydrate/Macro 100 MG CAPSULE PO ONE (08:00)
[2023-02-10 08:52] VITALS: BP 110/56
[2023-02-10] MEDS ORDERED: NITR-65 PO (08:53)
[2023-02-10 09:27] VITALS: BP 110/56
[2023-02-10] MEDS ORDERED: FERR-84 PO (10:48)
[2023-02-10] MEDS ORDERED: PREN1TAB79 PO (10:48)
[2023-02-10 11:25] VITALS: BP 110/56
--- NOTE | 2023-03-13 16:25 | Short Stay Summary ---
History of Present Illness History of Present Illness Reason for visit/HPI 28 wk GA of with nausea/vomiting and diarrhea. Date of Admission Feb 09, 2023 at 14:19 Date of Discharge Feb 10, 2023 at 08:54 Time Seen by Provider: 09:00 Attending Physician Myriam Ramesh MD Admitting Physician Admitting Physician: Oscar Montgomery DO Attending Physician: Oscar Montgomery DO Consult Allergies and Home Medications Allergies Coded Allergies: No Known Drug Allergies (Unverified , 06/09/19) Patient Home Medication List Home Medication List Reviewed: Yes Ferrous Sulfate (Iron) 325 Mg (65 Mg Iron) Tablet, 325 MG PO, (Reported) Entered as Reported by: JHONATAN PRASAD on 02/10/231047 Last Action: New Order Nitrofurantoin Monohyd/M-Cryst (Macrobid 100 mg Capsule) 100 Mg Capsule, 1 TAB PO BID Prescribed by: OSCAR MONTGOMERY on 02/10/23 0853 Vit W-Ca,Fe,FA(<1 mg) ( Vitamins) 27 Mg Iron-800 Mcg Tablet, 1 EACH PO DAILY, (Reported) Entered as Reported by: JHONATAN PRASAD on 02/10/231047 Last Action: New Order Past Svipmgm-Afkdpw-Gsfwha Hx Patient Social History Drug of Choice: POT, METH Smoking Status: Current Everyday Smoker 2nd Hand Smoke Exposure: No Recent Hopitalizations: No Seasonal Allergies Seasonal Allergies: No Surgeries No Respiratory No Cardiovascular No Neurological No Reproductive System Expected Date of Delivery: May 03, 2023 Last Menstrual Period: Feb 09, 2023 Hx : 1 Hx Para: 0 Hx Total # of Abortions (Spona: 0 Genitourinary No Gastrointestinal No Musculoskeletal No Endocrine History of Endocrine Disorders: No HEENT History of HEENT Disorders: No Cancer No Psychosocial History of Psychiatric Problem: No Integumentary History of Skin or Integumenta: No Review of Systems Constitutional: no symptoms reported EENTM: no symptoms reported Respiratory: no symptoms reported Cardiovascular: no symptoms reported Gastrointestinal: diarrhea, nausea, vomiting Genitourinary: frequency Musculoskeletal: no symptoms reported Skin: no symptoms reported Psychiatric/Neurological: No Symptoms Reported Physical Exam Vital Signs Capillary Refill : Less Than 3 Seconds Height, Weight, BMI Height: '" Weight: lbs. oz. kg; 24.14 BMI Method: General Appearance: No Apparent Distress, WD/WN Respiratory: No Accessory Muscle Use, No Respiratory Distress Cardiovascular: Regular Rate, Rhythm Gastrointestinal: Non Tender, Soft Extremity: Normal Capillary Refill Neurologic/Psychiatric: Alert, Oriented x3 Short Stay Diagnosis Discharge Diagnosis-Short Stay Admission Diagnosis: 28wk GA Nausea/vomiting and diarrhea Final Discharge Diagnosis: same UTI, E.coli dehydration Conclusion Labs Microbiology 02/09/23 Urine Culture - Final, Complete Escherichia coli Conclusion/Plan Treated with Rocephin and IVF RX for Macrobid on discharge OSCAR MONTGOMERY DO Mar 13, 2023 16:25
== END 2023-02-10 08:54 | disposition home or self-care (01) ==
LOC: LDRP 14:19 → WSo 14:19 → LDRP 14:19 → WSo 14:28 → LDRP 14:28 → UNDOADMOB 14:29 → LDRP 14:29 → WS 15:26 → UNDODISOB 02-10 11:25 → EDSTATUS 02-20 13:20
PROVIDERS: ADMIT Family Medicine; ATTEND Family Medicine
DX: O23.43 Unspecified infection of urinary tract in pregnancy, third trimester (principal); O21.9 Vomiting of pregnancy, unspecified; O99.613 Diseases of the digestive system complicating pregnancy, third trimester; O99.283 Endocrine, nutritional and metabolic diseases complicating pregnancy, third trimester; O99.333 Smoking (tobacco) complicating pregnancy, third trimester; N39.0 Urinary tract infection, site not specified; E86.0 Dehydration; B96.20 Unspecified Escherichia coli [E. coli] as the cause of diseases classified elsewhere; R19.7 Diarrhea, unspecified; Z3A.28 28 weeks gestation of pregnancy; F17.200 Nicotine dependence, unspecified, uncomplicated
CPT/HCPCS: 36415; 80053; 81000; 85007; 85027; 87077; 87088; 87186; 96360; 96361; 96375; 96376; G0378